=== PATIENT | female | born 1990 | race Caucasian/White ===

== ENCOUNTER 2017-10-13 16:58 | Emergency (ER) | payer SELFPAY ==
[~2017-10-13] VITALS: Ht 160 cm; Wt 82.0 kg
[~2017-10-13 16:58] MED LIST: LORTAB 5/3255 MG PO; METRONIDAZOL500 MG PO; ONDANSETRON4 MG PO; PRENATAL1 TA1 PO; ZPAK PO
[2017-10-13 18:29] LABS: INFLUENZA A NONE DETECTED (NONE DETECT); INFLUENZA B NONE DETECTED (NONE DETECT)
[2017-10-13] MEDS ORDERED: AMOXICILLIN500 MG PO (18:59)
[2017-10-13 19:16] VITALS: BP 112/68
== END 2017-10-13 19:18 | disposition home or self-care (01) | DRG 153 ==
LOC: ED 16:58
PROVIDERS: Family Medicine
DX: J06.9 Acute upper respiratory infection, unspecified (principal); F17.210 Nicotine dependence, cigarettes, uncomplicated; J02.9 Acute pharyngitis, unspecified

== ENCOUNTER 2018-01-20 01:25 | Emergency (ER) | payer SELFPAY ==
[~2018-01-20] VITALS: Ht 160 cm; Wt 84.0 kg
[~2018-01-20 01:25] MED LIST changes: +AMOXICILLIN500 MG PO
[2018-01-20 02:15] LABS: HEMATOCRIT 37.6 % (37.0-47.0); HEMOGLOBIN 13.2 g/dl (12.0-16.0); IMMATURE GRANULOCYTES 0.2 % (0.0-1.0); MEAN CORPUSCULAR HGB CONC 35.1 g/L CALC (32.0-36.0); NEUT# 6.28 thou/uL (2.00-7.15); RED BLOOD COUNT 4.13 mill/uL (4.20-5.60); RED CELL DISTRI WIDTH 11.3 % (11.5-15.5)
[2018-01-20 02:15] LABS: URINE BILIRUBIN - DIPSTICK NEGATIVE (NEGATIVE); URINE BLOOD DIPSTICK TRACE-INTACT (NEGATIVE); URINE COLOR YELLOW; URINE GLUCOSE - DIPSTICK NEGATIVE (NEGATIVE); URINE KETONE NEGATIVE (NEGATIVE); URINE LEUK ESTERASE NEGATIVE (NEGATIVE); URINE NITRITE - DIPSTICK NEGATIVE (Negative); URINE PH 6.5 (4.5-8.0); URINE PROTEIN - DIPSTICK NEGATIVE (NEG-TRACE); URINE SPECIFIC GRAVITY <=1.005; URINE UROBILINOGEN - DIPSTICK 0.2 E.U./dL (0.2)
[2018-01-20 02:21] LABS: URINE CLARITY CLEAR
[2018-01-20 02:35] LABS: ALKALINE PHOSPHATASE 85 u/l (38-126); ANION GAP 8 (6-22 (CALC)); BILIRUBIN, TOTAL 0.5 mg/dL (0.0-1.4); BUN 10 mg/dL (7-17); BUN/CREATININE RATIO 17 (12-20 (CALC)); CARBON DIOXIDE 28 mmol/l (22-30); CHLORIDE 104 mmol/l (95-108); CREATININE 0.6 mg/dL (0.5-1.0); GFR > 60 ML/MIN (>=60 (CALC)); GFR FOR AFR.AMER. > 60 ML/MIN (>=60 (CALC)); POTASSIUM 3.1 mmol/l (3.5-5.1); SGOT/AST 30 u/l (14-36); SGPT/ALT 37 u/l (9-52); SODIUM 137 mmol/l (137-146); TOTAL PROTEIN 7.3 g/dL (6.3-8.2)
[2018-01-20 03:33] VITALS: BP 114/67
== END 2018-01-20 03:40 | disposition home or self-care (01) | DRG 392 ==
LOC: ED 01:25
PROVIDERS: Emergency Medicine
DX: R10.2 Pelvic and perineal pain (principal); F17.210 Nicotine dependence, cigarettes, uncomplicated

== ENCOUNTER 2018-02-11 21:48 | Emergency (ER) | payer SELFPAY ==
[~2018-02-11] VITALS: Ht 160 cm; Wt 84.0 kg
[2018-02-11] MEDS ORDERED: AMOXICILLIN875 MG PO (22:21)
[2018-02-11 22:48] VITALS: BP 116/71
== END 2018-02-11 22:48 | disposition home or self-care (01) | DRG 153 ==
LOC: ED 21:48
DX: H66.92 Otitis media, unspecified, left ear (principal); H92.02 Otalgia, left ear; F17.200 Nicotine dependence, unspecified, uncomplicated

== ENCOUNTER 2018-11-25 11:02 | Emergency (ER) | payer SELFPAY ==
[~2018-11-25] VITALS: Ht 160 cm; Wt 83.6 kg
[~2018-11-25 11:02] MED LIST changes: +AMOXICILLIN875 MG PO
[2018-11-25] MEDS ORDERED: AMOXICILLIN875 MG PO (12:46)
[2018-11-25 12:55] VITALS: BP 105/50
== END 2018-11-25 12:55 | disposition home or self-care (01) | DRG 153 ==
LOC: ED 11:02
DX: J02.9 Acute pharyngitis, unspecified (principal); Z77.22 Contact with and (suspected) exposure to environmental tobacco smoke (acute) (chronic)

== ENCOUNTER 2019-06-03 17:27 | Emergency (ER) | payer OTHER ==
[~2019-06-03] VITALS: Ht 160 cm; Wt 80.0 kg
[2019-06-03 18:14] VITALS: BP 110/60
== END 2019-06-03 18:20 | disposition home or self-care (01) | DRG 605 ==
LOC: ED 17:27
DX: S50.812A Abrasion of left forearm, initial encounter (principal); V43.52XA Car driver injured in collision with other type car in traffic accident, initial encounter; W22.11XA Striking against or struck by driver side automobile airbag, initial encounter

== ENCOUNTER 2020-06-29 14:24 | Emergency (ER) | payer SELFPAY ==
[~2020-06-29] VITALS: Ht 160 cm; Wt 94.5 kg
[2020-06-29] MEDS ORDERED: KEFLEX500 M1 PO (15:12)
[2020-06-29] MEDS ORDERED: BACTROBAN TOP (15:12)
[2020-06-29 15:22] VITALS: BP 123/74
== END 2020-06-29 15:25 | disposition home or self-care (01) | DRG 603 ==
LOC: ED 14:24
DX: L03.311 Cellulitis of abdominal wall (principal)

== ENCOUNTER 2022-08-07 09:19 | Emergency (ER) | payer OTHER ==
[~2022-08-07] VITALS: Ht 160 cm; Wt 97.7 kg
[~2022-08-07 09:19] MED LIST changes: +BACTROBAN TOP; +KEFLEX500 M1 PO
[2022-08-07] MEDS ORDERED: NAPROXEN500 MG PO (14:48)
[2022-08-07] MEDS ORDERED: METHOCARBAMOL500 MG PO (14:48)
[2022-08-07 14:56] VITALS: BP 117/69
== END 2022-08-07 15:03 | disposition home or self-care (01) ==
LOC: ED 09:19
DX: S29.012A Strain of muscle and tendon of back wall of thorax, initial encounter (principal); X58.XXXA Exposure to other specified factors, initial encounter

== ENCOUNTER 2022-10-17 07:38 | Emergency (ER) | payer OTHER ==
[~2022-10-17] VITALS: Ht 160 cm; Wt 103.4 kg
[~2022-10-17 07:38] MED LIST changes: +METHOCARBAMOL500 MG PO; +NAPROXEN500 MG PO
[2022-10-17] MEDS ORDERED: FLEXERIL5 M1 PO (08:31)
[2022-10-17] MEDS ORDERED: VOLTAREN1%GEL TOP (08:31)
[2022-10-17] MEDS ORDERED: MOTRIN400 MG/TAB PO (08:31)
[2022-10-17 09:00] VITALS: BP 116/66
== END 2022-10-17 09:01 | disposition home or self-care (01) ==
LOC: ED 07:38
DX: S46.911A Strain of unspecified muscle, fascia and tendon at shoulder and upper arm level, right arm, initial encounter (principal); X50.0XXA Overexertion from strenuous movement or load, initial encounter; Y93.E2 Activity, laundry; Y92.009 Unspecified place in unspecified non-institutional (private) residence as the place of occurrence of the external cause